=== PATIENT | male | born 1950 | race Caucasian/White ===

== ENCOUNTER 2021-04-10 15:34 | Emergency (ER) | payer OTHER, SELFPAY ==
--- NOTE | ~2021-04-10 | CT_ITS ---
EXAMINATION: CT ANGIOGRAM NECK WITH CONTRAST CT ANGIOGRAM BRAIN WITH CONTRAST CLINICAL INFORMATION: Acute dizziness. COMPARISON: None. TECHNIQUE: Test bolus sequences followed by intravenous administration 70 mL of Omnipaque 350. Helical imaging was performed in the axial plane from the thoracic inlet to the skull vertex. Delayed postcontrast imaging of the head was also performed. The data was processed at the magnetic resonance technologist workstation for generation of MIP sequences. Angled MIPs and volume rendered reformatted images were also generated at an offline 3D workstation. Stenoses are assessed in accordance with NASCET criteria unless otherwise indicated. This CT examination was performed using dose optimization techniques as appropriate, variously including the following: *Automated exposure control *Adjustment of mA and/or kV according to patient size (this includes techniques or standardized protocols for targeted exams where dose is matched to indication/reason for exam; i.e. extremities or head) *Use of iterative reconstruction technique DLP: 2489 mGy-cm FINDINGS: Head CT: There is no intracranial hemorrhage, large acute infarction, or mass lesion. The ventricles are normal in size and configuration without evidence of hydrocephalus. On the delayed postcontrast images, there is no abnormal enhancement. The dural venous sinuses are normally opacified. The visualized paranasal sinuses and mastoid air cells are clear. Neck CTA: The aortic arch is patent. The great vessel origins are patent. The common carotid arteries are patent. Atheromatous changes are seen at both carotid bifurcations and along the proximal internal carotid arteries without hemodynamically significant stenosis. The right vertebral artery is significantly dominant and is patent throughout its cervical course. The left vertebral artery is hypoplastic with diminutive caliber and appears grossly patent. Head CTA: No proximal vessel occlusion is seen. The ACAs and MCAs appear patent with symmetric collaterals. The vertebral arteries and basilar artery are patent. There is -type origin of the right [employer]. The left [employer] appears normal. No aneurysm is seen. Non-vascular findings: The cervical soft tissues are within normal limits. No consolidation is seen within the upper lungs. The cervical soft tissues are within normal limits. Multilevel degenerative changes are seen within the spine. CT/CT angio head neck IMPRESSION: CT head: No intracranial hemorrhage or large acute infarction. CTA neck: No hemodynamically significant stenosis in the major arteries of the neck. CTA head: No large vessel occlusion or significant stenosis within the intracranial circulation.
[2021-04-10 15:42] VITALS: BP 168/90; PULSE 78; RESP 16; O2SAT 97; BMI 34.9
[2021-04-10 16:36] VITALS: BP 141/87; BP 144/81; PULSE 75; PULSE 79
--- NOTE | 2021-04-10 16:36 | ECG_ITS ---
Test Reason : DIZZINESS Blood Pressure : / mmHG Vent. Rate : 074 BPM Atrial Rate : 074 BPM P-R Int : 224 ms QRS Dur : 122 ms QT Int : 418 ms P-R-T Axes : 042 -38 002 degrees QTc Int : 463 ms Sinus rhythm with 1st degree A-V block with occasional Premature ventricular complexes and Fusion complexes Left axis deviation Possible Lateral infarct , age undetermined Abnormal ECG When compared with ECG of 03-SEP-2019 06:39, Fusion complexes are now Present Premature ventricular complexes are now Present [place] interval has increased QRS duration has increased Referred By: Anton Gar Electronically Signed By:ROSALIO PRESTON MD
--- NOTE | 2021-04-10 16:36 | ED_ITS ---
HPI - Syncope General Chief Complaint: Dizziness Stated Complaint: nausea Time Seen by Provider: 04/10/21 16:34 Source: patient Mode of arrival: ambulatory Limitations: no limitations History of Present Illness HPI narrative: Patient is 70 years old with history of hypertension been feeling lightheaded since yesterday am especially on standing denies any spinning movement no chest pain no palpitation. It got worse today morning unable to ambulate because of severe lightheadedness. Patient also noticed slight dark stool. No ringing in the ear no neck pain no headache no change in dizziness with neck movements MD complaint: felt faint Related Data Previous Rx's Medication Instructions Recorded meclizine 25 mg PO TID PRN #20 tab 04/10/21 Allergies Allergy/AdvReac Type Severity Reaction Status Date / Time Penicillins Allergy Unknown UNK Unverified 07/16/20 16:50 Review of Systems Review of Systems: Constitutional : No Weight loss, No Fever, No Chills ENT/Mouth : No sore throat, No Rhinorrhea Eyes: No Eye Pain, No Swelling Cardiovascular : No Chest Pain, no palpitations Respiratory : No Cough, No Sputum, no shortness of breath Gastrointestinal : ++ Nausea, No Vomiting, No Diarrhea, No abdominal Pain, no black stools Genitourinary : No Dysuria, No Urinary Frequency Musculoskeletal : No joint pain, No Myalgias, No Joint Swelling Skin : No Skin Lesions, No rash Neuro : No Weakness, No Numbness, ++Dizziness, No Headache Psych : No Anxiety/Panic, No Depression Heme/Lymph: No Bruising, No Lymphadenopathy Endocrine : No Polyuria, No Polydipsia All other systems reviewed and are negative [facility] Past Medical History Medical History (Updated 04/10/21 @ 20:06 by Anton Gar MD) High cholesterol HTN (hypertension) Right-sided Landers's palsy Social History Social History Patient Tobacco Use Status: Never used Tobacco Use of substances other than those prescribed or required for medical reasons: No Advance Directives: No Advance Directives Information Provided: No Physical Exam Vital Signs: Vital Signs: Last Vital Signs Pulse 83 04/10/21 18:36 Resp 18 04/10/21 18:36 BP 160/91 H 04/10/21 18:36 Pulse Ox 97 04/10/21 18:36 Body Mass Index 34.9 Appearance: Alert. Oriented X3. No acute distress. Eyes: PERRLA, No Nystagmus ENT: Pharynx normal. Oral Mucosa moist Neck: Normal inspection. Neck supple. CVS: Normal heart rate and rhythm. Pulses normal. Respiratory: No respiratory distress. Equal air entry bilateral, no wheezing/rales/rhonchi Abdomen: Soft and nontender. Bowel sounds are present, no mass palpable, no CVA tenderness Skin: Skin warm and dry. Normal skin color. Normal skin turgor. Extremities: No lower extremity edema. No calf tenderness Neuro: Oriented X 3. No motor deficit. No sensory deficit.No cerebellar signs , right Landers's palsy++ MDM - Syncope MDM Narrative Medical decision making narrative: Patient with nonspecific dizziness orthostatic blood pressure was normal urine showed ketones CTA head and neck was negative for any acute [place] posterior circulation ischemia patient felt better after IV fluids and meclizine will discharge patient home on meclizine Medical Records Attestation: I reviewed the patient's medical records. Lab Data Attestation: I reviewed the patient's lab results. Result diagrams: 04/10/21 16:48 04/10/21 16:48 Labs: Lab Results 04/10/21 04/10/21 04/10/21 Range/Units 16:48 16:48 16:48 WBC 7.3 (4.8-10.8) X10*3/uL RBC 4.62 (4.60-5.80) X10*6/uL Hgb 14.2 (14.0-18.0) g/dl Hct 44.1 (42-52) % MCV 95.5 (80-98) fL MCH 30.7 (27.0-33.0) pg MCHC 32.2 (31.0-36.0) g/dl RDW 13.8 (11.0-16.0) % Plt Count 137 L (160-400) X10*3/uL MPV 11.6 (9.4-12.4) fL Immature Gran % (Auto) 0.3 (0.0-0.4) % Neut % (Auto) 77.4 H (45-73) % Lymph % (Auto) 14.7 L (20-40) % [place] % (Auto) 7.2 (2-11) % Eos % (Auto) 0.1 (0-4) % Baso % (Auto) 0.3 (0-2) % Lymph # (Auto) 1.1 L (1.2-4.9) X10*3/uL [place] # (Auto) 0.5 (0.1-1.2) X10*3/uL Eos # (Auto) 0.0 (0.0-0.4) X10*3/uL Baso # (Auto) 0.0 (0.0-0.2) X10*3/uL Abs Immat Gran (auto) 0.02 (0.00-0.03) X10*3/uL Absolute Neuts (auto) 5.7 (2.0-8.3) X10*3/uL Absolute Nucleated RBC 0.000 (0.0-0.012) X10*3/uL Nucleated RBC % (auto) 0.0 (0.0-0.2) /100WBC Smear Tech's Comments Not Reportable PT 12.7 (10.8-13.0) SEC INR 1.1 (0.9-1.1) Sodium 142 (135-145) mmol/L Potassium 3.5 (3.3-5.1) mmol/L Chloride 103 (96-108) mmol/L Carbon Dioxide 26 (22-29) mmol/L Anion Gap 17 (12-20) BUN 15 (9-16) mg/dL Creatinine 0.79 (0.5-1.4) mg/dL Estim Creat Clear Calc 109.8 Estimated GFR > 60 Random Glucose 124 H (60-115) mg/dL Calcium 9.6 (8.4-10.2) mg/dL Total Bilirubin 0.6 (0.0-1.0) mg/dL Direct Bilirubin 0.3 (0.0-0.5) mg/dL AST 21 (5-37) U/L ALT 25 (0-40) U/L Alkaline Phosphatase 118 H (39-117) U/L Troponin I High Sens (<3.5-35.0) ng/L Total Protein 7.6 (6.5-8.0) g/dL Albumin 4.6 (3.5-5.0) g/dL Urine Color Urine Appearance Urine pH (5.0-8.0) Ur Specific [place] (1.005-1.025) Urine Protein (NEG-TRACE) MG/DL Urine Glucose (UA) (NEG) MG/DL Urine Ketones (NEG) MG/DL Urine Blood (NEG) Urine Nitrite (NEG) Ur Leukocyte Esterase (NEG) 04/10/21 04/10/21 Range/Units 16:48 18:38 WBC (4.8-10.8) X10*3/uL RBC (4.60-5.80) X10*6/uL Hgb (14.0-18.0) g/dl Hct (42-52) % MCV (80-98) fL MCH (27.0-33.0) pg MCHC (31.0-36.0) g/dl RDW (11.0-16.0) % Plt Count (160-400) X10*3/uL MPV (9.4-12.4) fL Immature Gran % (Auto) (0.0-0.4) % Neut % (Auto) (45-73) % Lymph % (Auto) (20-40) % [place] % (Auto) (2-11) % Eos % (Auto) (0-4) % Baso % (Auto) (0-2) % Lymph # (Auto) (1.2-4.9) X10*3/uL [place] # (Auto) (0.1-1.2) X10*3/uL Eos # (Auto) (0.0-0.4) X10*3/uL Baso # (Auto) (0.0-0.2) X10*3/uL Abs Immat Gran (auto) (0.00-0.03) X10*3/uL Absolute Neuts (auto) (2.0-8.3) X10*3/uL Absolute Nucleated RBC (0.0-0.012) X10*3/uL Nucleated RBC % (auto) (0.0-0.2) /100WBC Smear Tech's Comments PT (10.8-13.0) SEC INR (0.9-1.1) Sodium (135-145) mmol/L Potassium (3.3-5.1) mmol/L Chloride (96-108) mmol/L Carbon Dioxide (22-29) mmol/L Anion Gap (12-20) BUN (9-16) mg/dL Creatinine (0.5-1.4) mg/dL Estim Creat Clear Calc Estimated GFR Random Glucose (60-115) mg/dL Calcium (8.4-10.2) mg/dL Total Bilirubin (0.0-1.0) mg/dL Direct Bilirubin (0.0-0.5) mg/dL AST (5-37) U/L ALT (0-40) U/L Alkaline Phosphatase (39-117) U/L Troponin I High Sens 3.6 (<3.5-35.0) ng/L Total Protein (6.5-8.0) g/dL Albumin (3.5-5.0) g/dL Urine Color YELLOW Urine Appearance CLEAR Urine pH 7.5 (5.0-8.0) Ur Specific [place] 1.015 (1.005-1.025) Urine Protein NEG (NEG-TRACE) MG/DL Urine Glucose (UA) NEG (NEG) MG/DL Urine Ketones 15 (NEG) MG/DL Urine Blood NEG (NEG) Urine Nitrite NEG (NEG) Ur Leukocyte Esterase NEG (NEG) ECG Data Attestation: I personally reviewed and interpreted this ECG as follows: Interpretation: Normal sinus rhythm with first-degree AV block left axis deviation no acute ST wave changes no acute ischemia occasional unifocal PVCs Discharge Plan Discharge Clinical Impression: Dizziness Patient Disposition: Home, Self-Care Instructions: Dizziness (ED) Additional Instructions: Drink plenty of fluids Take medication for dizziness as prescribed as needed for dizziness follow up with pcp if not better Prescriptions: New meclizine 25 mg tablet 25 mg PO TID PRN (Reason: dizziness) Qty: 20 RF: 0 Interventions: ED Discharge Assessment Last Done: 04/10/21 20:10 Discharge Date/Time: 04/10/21 20:11
[2021-04-10 16:54] LABS: Eosinophils Percent Auto 0.1 % (0-4); Hemoglobin 14.2 g/dl (14.0-18.0); Imm Gran Abs Auto 0.02 X10*3/uL (0.00-0.03); Imm Gran Pct Auto 0.3 % (0.0-0.4); MANUAL DIFF FLAG SCAN; PLT CLUMP 1; SCAN SMEAR FLAG 1
[2021-04-10 16:56] LABS: Basophils Percent Auto 0.3 % (0-2); Hematocrit 44.1 % (42-52); Lymphocytes Absolute Auto 1.1 X10*3/uL (1.2-4.9); Lymphocytes Percent Auto 14.7 % (20-40); Mean Corpuscular HGB Conc 32.2 g/dl (31.0-36.0); Mean Corpuscular Hemoglobin 30.7 pg (27.0-33.0); Mean Corpuscular Volume 95.5 fL (80-98); Mean Platelet Volume 11.6 fL (9.4-12.4); Monocytes Absolute Auto 0.5 X10*3/uL (0.1-1.2); Monocytes Percent Auto 7.2 % (2-11); Neutrophils Absolute Auto 5.7 X10*3/uL (2.0-8.3); Neutrophils Percent Auto 77.4 % (45-73); Platelet Count 137 X10*3/uL (160-400); Red Blood Count 4.62 X10*6/uL (4.60-5.80); Red Cell Distribution Width 13.8 % (11.0-16.0); White Blood Count 7.3 X10*3/uL (4.8-10.8)
[2021-04-10 17:00] LABS: INTERNATIONAL NORM RATIO 1.1 (0.9-1.1); Prothrombin Time 12.7 SEC (10.8-13.0)
[2021-04-10 17:22] LABS: Alanine Aminotransferase 25 U/L (0-40); Albumin Level 4.6 g/dL (3.5-5.0); Alkaline Phosphatase 118 U/L (39-117); Anion Gap 17 (12-20); Aspartate Amino Transferase 21 U/L (5-37); Bilirubin Direct 0.3 mg/dL (0.0-0.5); Bilirubin Total 0.6 mg/dL (0.0-1.0); Blood Urea Nitrogen 15 mg/dL (9-16); Calcium 9.6 mg/dL (8.4-10.2); Carbon Dioxide 26 mmol/L (22-29); Chloride 103 mmol/L (96-108); Creatinine Clr Calc Pharmacy 109.8; Estimated Glomerular Filt Rate > 60; Glucose Random 124 mg/dL (60-115); Potassium 3.5 mmol/L (3.3-5.1); Sodium 142 mmol/L (135-145); Total Protein 7.6 g/dL (6.5-8.0)
[2021-04-10 17:25] LABS: Troponin-I High Sensitivity 3.6 ng/L (<3.5-35.0)
[2021-04-10] MEDS: iohexoL 350 MG/ML 100 ML INFUS..BTL IV (18:28)
[2021-04-10 18:36] VITALS: BP 160/91; PULSE 83; RESP 18; O2SAT 97
[2021-04-10 18:45] LABS: Glucose Urine UA NEG (NEG); Leukocyte Esterase Urine NEG (NEG); Nitrite Urine NEG (NEG); PH 7.5 (5.0-8.0); Specific Gravity - Urine 1.015 (1.005-1.025); Urine Blood NEG (NEG); Urine Ketones 15 MG/DL (NEG); Urine Protein NEG (NEG-TRACE)
[2021-04-10 18:46] LABS: Color Urine YELLOW
[2021-04-10 18:47] LABS: Appearance Urine CLEAR
[2021-04-10] MEDS: Meclizine HCl 25 MG TABLET 50 MG PO (18:47)
[2021-04-10] MEDS: 0.9 % Sodium Chloride 1,000 ML 999 ML IVCONT (18:47)
== END 2021-04-10 20:11 | disposition home or self-care (01) ==
PROVIDERS: Emergency Provider Internal Medicine; PCP Internal Medicine
DX: R42 Dizziness and giddiness (principal); I10 Essential (primary) hypertension
CPT/HCPCS: 36415; 70496; 70498; 80048; 80076; 81003; 84484; 85025; 85610; 93005; 96360; 99284; 99285; Q9967

== ENCOUNTER 2024-07-10 07:12 | Emergency (ER) | payer MEDICARE, SELFPAY ==
--- NOTE | ~2024-07-10 | XR_ITS ---
EXAMINATION: XR CHEST CLINICAL INFORMATION: Chest pain on inspiration COMPARISON: Chest x-ray on 09/03/2019 TECHNIQUE: Frontal view of the chest was obtained. FINDINGS: HEART & VASCULARITY: There are normal cardiac size and pulmonary vascularity. LUNGS: Lungs are markedly hypoinflated. Subtle left lung base alveolar density effacing the left lateral costophrenic angle is seen. No pneumothorax is seen. Air-filled hepatic flexure is seen protruding into the right lung base. BONES: Bony skeleton is intact. XR/XR chest 1V IMPRESSION: 1. Persistent Markedly hypoinflated lungs. 2. Interval development of Subtle left lung base alveolar density effacing the left lateral costophrenic angle compatible with atelectasis or small left pleural effusion. 3. Air-filled hepatic flexure protrudes into the right lung base. Electronically signed by: Lauren Queen MD 07/10/2024 07:56 AM EDT
--- NOTE | ~2024-07-10 | CT_ITS ---
EXAMINATION: CTA OF THE CHEST, ABDOMEN, AND PELVIS WITH AND WITHOUT CONTRAST CLINICAL INFORMATION: Chest pain abdominal pain COMPARISON: Chest radiograph 07/10/2024 TECHNIQUE: Initial noncontrast localizing media librarian images were obtained. Timing boluses at the level of the aortic arch and iliac arteries were calculated. Subsequently, arterial phase multidetector volumetric imaging was performed through the chest, abdomen, and pelvis following the administration of 70 mL Omnipaque 350 intravenous contrast. No contrast reaction reported Sagittal and coronal reformatted images were obtained on the technologist workstation. After extensive post-processing on a dedicated 3-D workstation, 3-D reformatted images were uploaded to PACS and reviewed as well. This CT examination was performed using dose optimization techniques as appropriate, variously including the following: *Automated exposure control *Adjustment of mA and/or kV according to patient size (this includes techniques or standardized protocols for targeted exams where dose is matched to indication/reason for exam; i.e. extremities or head) *Use of iterative reconstruction technique Total exam dose-length product 183 mGy-cm FINDINGS: VASCULAR: 1. Ascending thoracic aorta: There is fusiform dilation of the ascending thoracic aorta measures 4.3 cm at the midportion and 3.9 cm just proximal to the origin of the arch vessels. There is no evidence of dissection or other acute aortic syndrome. 2. Thoracic aortic arch: There is a three-vessel branching orientation of the aortic arch. The origins of the arch vessels are unremarkable in the visualized segments are normal in caliber and well-opacified. 3. Descending thoracic aorta: The descending thoracic aorta is nonaneurysmal. There is no evidence of dissection or other acute aortic syndrome. 4. Mesenteric arteries: Celiac axis and superior mesenteric arteries are widely patent and well-opacified. The inferior mesenteric artery is widely patent and well opacified. 5. Renal arteries: Single renal artery to each kidney. The renal arteries are widely patent and well-opacified. 6. Abdominal aorta: The abdominal aorta is nonaneurysmal. There is no evidence of dissection or other acute aortic syndrome. There is minimal scattered eccentric plaque without stenosis. The iliac bifurcation is unremarkable. 7. Iliac arteries: Iliac bifurcation is widely patent. There is scattered calcified and noncalcified disease of the iliac vessels without hemodynamically significant stenosis. The proximal femoral vessels are patent. 8. Pulmonary arteries: The pulmonary arteries are not dilated. The study is not optimized for the evaluation of the pulmonary arteries, no large central embolus is seen. 9. Venous: Unremarkable appearance of the venous structures for an arterial phase of contrast. NONVASCULAR: Lung: There is elevation of the left hemidiaphragm and volume loss at the left lung base. There is a small focus of linear atelectasis within the lingula. There is a trace subpulmonic effusion. Pleura: Trace left subpulmonic effusion. Mediastinum: Normal heart size. There is relatively extensive vascular calcification of the coronary arteries. No pericardial effusion. No hilar or mediastinal lymphadenopathy. Chest Wall/Axilla: No axillary or internal mammary lymphadenopathy. Liver, Gallbladder and Biliary Tree: Liver is normal in size and overall attenuation. There are multiple hypoattenuating lesions throughout the liver which measure fluid attenuation and likely represent cysts. No concerning hepatic lesions are seen. There is no intra or extrahepatic duct dilation. Gallbladder is unremarkable. Pancreas: Normal; no mass or surrounding fluid. Spleen: Normal size. No focal lesion. Adrenal Glands: Normal; no mass. Kidneys and Ureters: The kidneys are normal in size and shape. There is subtle hypoattenuation of the left kidney when compared with the right.. At the upper pole of the left kidney there is a 10 x 7 x 8 mm nonobstructing calculus. There is no hydronephrosis or hydroureter. There is streak artifact in the pelvis relating to surgical clips which could limit evaluation for distal ureteral calculi. There is renal cortical scarring at the lower pole of the left kidney and there is an exophytic simple cyst which would not require routine radiographic follow-up originating from the lower pole of the right kidney that measures up to 7.5 cm. Gastrointestinal Tract: The esophagus and stomach are unremarkable. The small and large bowel are normal in course and caliber. No bowel wall inflammatory changes are seen. Incidentally the cecum is located in the right upper quadrant. There is mild colonic diverticulosis. Normal appendix. Abdominal Wall: No significant hernia is appreciated. Lymphovascular Structures: No lymphadenopathy. Bladder: Essentially completely decompressed limiting its evaluation. No bladder calculi are seen. Pelvic Viscera: Postprostatectomy. Osseous Structures: There are bilateral L5 pars defects and grade 1 anterolisthesis of L5 on S1. There is disc degenerative change which is most prominent at L5-S1, the distal degenerative change and endplate degenerative changes of the thoracolumbar seen at additional levels. No acute or aggressive bony abnormalities are seen. CT/CT angio chest PE protocol IMPRESSION: Patent thoracic, abdominal, pelvic arterial vasculature without evidence of dissection or other acute aortic syndrome. There is aneurysmal dilation of the ascending thoracic aorta to 4.3 cm. There is diffuse hypoenhancement of the left kidney when compared with the right which is a nonspecific finding. Correlation with urinalysis could be helpful. Additionally there is a left upper pole nonobstructing calculus that measures up to 10 mm in greatest dimension. Electronically signed by: Ric Hloguin MD 07/10/2024 12:28 PM EDT
[2024-07-10 07:21] VITALS: BP 147/85; PULSE 70; RESP 16; TEMP 36.8; O2SAT 96; BMI 38.3
--- NOTE | 2024-07-10 07:30 | ECG_ITS ---
Test Reason : CHEST PAIN Blood Pressure : / mmHG Vent. Rate : 068 BPM Atrial Rate : 068 BPM P-R Int : 230 ms QRS Dur : 108 ms QT Int : 400 ms P-R-T Axes : 037 -48 000 degrees QTc Int : 425 ms Sinus rhythm with 1st degree A-V block Left anterior fascicular block Abnormal ECG When compared with ECG of 10-APR-2021 16:21, Fusion complexes are no longer Present Premature ventricular complexes are no longer Present Referred By: Generic ED Physician Electronically Signed By:MELANIE MUSE
[2024-07-10 07:48] LABS: MANUAL DIFF FLAG NO
[2024-07-10 07:52] LABS: Basophils Percent Auto 0.3 % (0-2); Eosinophils Absolute Auto 0.1 X10*3/uL (0.0-0.4); Eosinophils Percent Auto 1.4 % (0-4); Hematocrit 41.9 % (42.0-52.0); Hemoglobin 13.7 g/dl (14.0-18.0); Imm Gran Abs Auto 0.01 X10*3/uL (0.00-0.03); Imm Gran Pct Auto 0.2 % (0.0-0.4); Lymphocytes Absolute Auto 1.2 X10*3/uL (1.2-4.9); Lymphocytes Percent Auto 19.8 % (20-40); Mean Corpuscular HGB Conc 32.7 g/dl (31.0-36.0); Mean Corpuscular Hemoglobin 31.9 pg (27.0-33.0); Mean Corpuscular Volume 97.7 fL (80.0-98.0); Mean Platelet Volume 11.2 fL (9.4-12.4); Monocytes Absolute Auto 0.9 X10*3/uL (0.1-1.2); Monocytes Percent Auto 14.9 % (2-11); Neutrophils Absolute Auto 3.8 x10*3/uL (2.0-8.3); Neutrophils Percent Auto 63.4 % (45-73); Platelet Count 135 X10*3/uL (160-400); Red Blood Count 4.29 X10*6/uL (4.60-5.80); Red Cell Distribution Width 13.8 % (11.0-16.0); White Blood Count 5.9 X10*3/uL (4.8-10.8)
[2024-07-10 08:00] LABS: Anion Gap 14 (12-20); Blood Urea Nitrogen 17 mg/dL (9-16); Calcium 9.6 mg/dL (8.4-10.2); Carbon Dioxide 28 mmol/L (22-29); Chloride 105 mmol/L (96-108); Creatinine Clr Calc Pharmacy 91.2; Estimated Glomerular Filt Rate > 60; Glucose Random 130 mg/dL (60-115); Potassium 3.7 mmol/L (3.3-5.1); Sodium 143 mmol/L (135-145)
[2024-07-10 08:08] LABS: Troponin-I High Sensitivity 4.3 ng/L (<3.5-35.0)
[2024-07-10 09:17] VITALS: BP 148/91; PULSE 70; RESP 16; O2SAT 96
--- NOTE | 2024-07-10 09:25 | PC.NURSE ---
Pt reports left sided cp, worse with inspiration since monday after he moved some things around the house. Pt saw his PCP who did an EKG and believes it is a muscle strain. Pt came to ed for eval as the pain wasn't getting better and he was concerned. VS updated, pt placed on tele. MD at bedside to evaluate at this time.
--- NOTE | 2024-07-10 09:28 | ED_ITS ---
HPI - Chest Pain General Chief Complaint: Chest Pain Stated Complaint: SOB Time Seen by Provider: 07/10/24 09:13 History of Present Illness HPI narrative: Patient is a 74-year-old male was gardening on Monday and Monday. Complaining of left-sided chest pain worse with deep inspiration. Wants to see his primary in EKG was done. Patient was set up for a stress test on an outpatient basis. Continued to have the pain. Not on any blood thinners. No history diabetes, hypertension, high cholesterol, smoking, mi. patient is from home. No fever no chills no diaphoresis. Related Data Previous Rx's ?Medication ?Instructions ?Recorded meclizine 25 mg tablet 25 mg PO TID PRN dizziness #20 tabs 04/10/21 Allergies Allergy/AdvReac Type Severity Reaction Status Date / Time Penicillins Allergy Unknown UNK Unverified 07/10/24 07:27 Review of Systems 2 Review of Systems: No fever no chills no diaphoresis positive chest pain on the left side worse with deep inspiration Yes all other systems are reviewed and are negative [facility] Past Medical History Attestation statement: The following information was validated with the patient. Medical History Right-sided Landers's palsy High cholesterol HTN (hypertension) Social History Social History Patient Tobacco Use Status: Never used Tobacco Advance Directives: No Advance Directives Information Provided: Yes Do you have a plan to hurt others: No Plan Physical Exam 2 Vital Signs: Vital Signs: Last Vital Signs Temp 98.3 F 07/10/24 07:21 Pulse 66 07/10/24 11:52 Resp 15 07/10/24 11:52 BP 152/77 H 07/10/24 11:52 Pulse Ox 96 07/10/24 11:52 O2 Del Method Room Air 07/10/24 11:52 BMI result Body Mass Index 38.3 Appearance: Alert. Oriented X3. No acute distress. Eyes: Pupils equal, round and reactive to light. ENT: Pharynx normal. Neck: Normal inspection. Neck supple. No lymph nodes noted. No crepitus CVS: Normal heart rate and rhythm. Pulses normal. Normal S1 and S2 Respiratory: No respiratory distress. Breath sounds normal. No Wheezing. No rales Abdomen: Soft and nontender. No rigidity. No distention. good BS x4 Skin: Skin warm and dry. Normal skin color. Normal skin turgor. Extremities: No lower extremity edema. Neurovascular intact to all extremities. No Lacerations. No Rash Neuro: Oriented X 3. No motor deficit. No sensory deficit. Moving all extermities. No slurred speech Medications Administered Discontinued Medications Generic Name Dose Route Start Last Admin Trade Name Shahid PRN Reason Stop Dose Admin Iohexol 70 ml 07/10/24 10:00 07/10/24 10:01 Iohexol 350 Mg/Ml 100 Ml Infus..Btl IV 07/10/24 10:01 70 ml ONCE ONE Administration Medical Decision Making Medical Decision Making [facility] Narrative: Patient is 74 years old presents today with having left-sided chest pain. The pain is sometimes worse with movement. Nonspecific. Over the entire left side both in the chest any abdomen. Patient not on any blood thinners. Has no significant risk for pulmonary emboli. No history of cancer. History of hypertension. No history of diabetes, high cholesterol, smoking, mi. patient's labs showed 2 sets of negative cardiac enzymes. History that is atypical for ACS. My interpretation patient's EKG showed a sinus pattern heart rate is 70 [place] QRS QTC normal there is no acute ST segment elevation noted. Patient received a CT a chest abdomen pelvis. There is no large PE that was noted. Patient's has no dissecting aneurysm. Does have a slight enlargement of his aortic take off. It was noted to be 4.3 cm in size. Given the upper range of normal is 4 cm. This finding was relayed to vascular on-call Dr. Teran. Agree to closely follow up on an outpatient basis. In no acute distress. Neurovascularly intact. Patient's heart score is less than 3 in the setting of atypical history minimal risk factor negative troponin x2 sets. Patient has an outpatient stress test scheduled with his primary physician. Has no acute abdominal pathology that was noted. Will discharge patient home. Close follow-up advised. Differential Diagnosis Differential Diagnoses: The differential diagnosis associated with the presentation includes ACS, PE, dissection Admission/Observation Consideration of admission/observation: Escalation of care including admission/observation considered Consult Healthcare Provider Management of the patient was discussed with: Metal Window Screen Assembler (Vascular surgery) Lab Data [facility] Lab Attestation statement: I reviewed the patient's lab results. 07/10/24 07:43 07/10/24 07:43 Labs: Lab Results 07/10/24 07/10/24 Range/Units 07:43 11:08 WBC 5.9 (4.8-10.8) X10*3/uL RBC 4.29 L (4.60-5.80) X10*6/uL Hgb 13.7 L (14.0-18.0) g/dl Hct 41.9 L (42.0-52.0) % MCV 97.7 (80.0-98.0) fL MCH 31.9 (27.0-33.0) pg MCHC 32.7 (31.0-36.0) g/dl RDW 13.8 (11.0-16.0) % Plt Count 135 L (160-400) X10*3/uL MPV 11.2 (9.4-12.4) fL Immature Gran % (Auto) 0.2 (0.0-0.4) % Neut % (Auto) 63.4 (45-73) % Lymph % (Auto) 19.8 L (20-40) % [place] % (Auto) 14.9 H (2-11) % Eos % (Auto) 1.4 (0-4) % Baso % (Auto) 0.3 (0-2) % Lymph # (Auto) 1.2 (1.2-4.9) X10*3/uL [place] # (Auto) 0.9 (0.1-1.2) X10*3/uL Eos # (Auto) 0.1 (0.0-0.4) X10*3/uL Baso # (Auto) 0.0 (0.0-0.2) X10*3/uL Abs Immat Gran (auto) 0.01 (0.00-0.03) X10*3/uL Absolute Neuts (auto) 3.8 (2.0-8.3) x10*3/uL Absolute Nucleated RBC 0.000 (0.0-0.012) X10*3/uL Nucleated RBC % (auto) 0.0 (0.0-0.2) /100WBC Sodium 143 (135-145) mmol/L Potassium 3.7 (3.3-5.1) mmol/L Chloride 105 (96-108) mmol/L Carbon Dioxide 28 (22-29) mmol/L Anion Gap 14 (12-20) BUN 17 H (9-16) mg/dL Creatinine 0.94 (0.5-1.4) mg/dL Estim Creat Clear Calc 91.2 Estimated GFR > 60 Random Glucose 130 H (60-115) mg/dL Calcium 9.6 (8.4-10.2) mg/dL Total Bilirubin 0.5 (0.0-1.0) mg/dL Direct Bilirubin 0.2 (0.0-0.5) mg/dL AST 22 (5-37) U/L ALT 25 (0-40) U/L Alkaline Phosphatase 125 H (39-117) U/L Troponin I High Sens 4.3 4.2 (<3.5-35.0) ng/L Total Protein 7.8 (6.5-8.0) g/dL Albumin 4.2 (3.5-5.0) g/dL Lipase 17 (8-78) U/L Independent Interpretation I performed an independent interpretation of an: EKG (Heart rate is 70 [place] QRS QTC normal no acute ST segment elevation) and CT Scan (CTA of the chest abdomen pelvis showed no gross dissection. No large PE) Radiology Impression Discussion of test interpretation with radiology: I have reviewed the radiologist's reading. Chronic Conditions Patient?s care impacted by: Hypertension Discharge Plan Discharge Clinical Impression: Chest pain Patient Disposition: Home, Self-Care Instructions: Chest Pain (ED) Prescriptions: No Action meclizine 25 mg tablet 25 mg PO TID PRN (Reason: dizziness) Qty: 20 0RF Referrals: Clarke Cohen MD [Primary Care Provider] - 07/12/24 Lincoln Teran MD [Physician] - 07/17/24 Print Language: Chinese
[2024-07-10 09:52] LABS: Alanine Aminotransferase 25 U/L (0-40); Albumin Level 4.2 g/dL (3.5-5.0); Alkaline Phosphatase 125 U/L (39-117); Aspartate Amino Transferase 22 U/L (5-37); Bilirubin Direct 0.2 mg/dL (0.0-0.5); Bilirubin Total 0.5 mg/dL (0.0-1.0); Lipase 17 U/L (8-78); Total Protein 7.8 g/dL (6.5-8.0)
--- NOTE | 2024-07-10 09:52 | PC.NURSE ---
Pt to CT Scan.
[2024-07-10] MEDS: iohexoL 350 MG/ML 100 ML INFUS..BTL 70 ML IV (10:01)
[2024-07-10 11:31] LABS: Troponin-I High Sensitivity 4.2 ng/L (<3.5-35.0)
--- NOTE | 2024-07-10 11:51 | PC.NURSE ---
VS updated, pt denies any complaints. Awaiting CTA results.
[2024-07-10 11:52] VITALS: BP 152/77; PULSE 66; RESP 15; O2SAT 96
[2024-07-10 13:18] VITALS: BP 167/93; PULSE 75; RESP 21; O2SAT 94
[2024-07-10 13:25] VITALS: BP 167/93; PULSE 75; RESP 21; TEMP 36.8; O2SAT 94
== END 2024-07-10 13:26 | disposition home or self-care (01) ==
PROVIDERS: Emergency Provider Emergency Medicine Emergency Medical Services; PCP Internal Medicine
DX: R07.9 Chest pain, unspecified (principal); R10.9 Unspecified abdominal pain; I10 Essential (primary) hypertension
CPT/HCPCS: 36415; 71045; 71275; 74174; 80048; 80076; 83690; 84484; 85025; 93005; 99284; Q9967

== ENCOUNTER 2024-11-29 08:27 | Outpatient (REF) | payer MEDICARE, SELFPAY ==
--- NOTE | ~2024-11-29 | CT_ITS ---
CLINICAL HISTORY: ANEURYSM OF ASCENDING AORTA CT chest without contrast Comparison: CT/SR - CT ANGIO CHEST PE PROTOCOL - 07/10/24 09:49 EDT Findings: Limited vascular evaluation given absence of contrast. The maximum transverse dimension of the ascending thoracic aorta is 4.6 x 4.6 cm. Moderately severe atherosclerotic disease of the coronary arteries. No mediastinal adenopathy or pericardial effusion. Mildly heterogeneous thyroid gland, nonspecific. Elevation of the left hemidiaphragm. Associated compressive atelectasis. No suspicious lung lesion. No effusion. No pneumothorax. Several rounded hepatic lesions are present, those large enough to measure are consistent with simple fluid/benign lesions. No acute osseous abnormality. Impression: The maximum transverse dimension of the ascending thoracic aorta is 4.6 x 4.6 cm. Evaluation is somewhat limited in the absence of contrast. Additional incidental findings. This document has been electronically signed by: Joel Mosley MD on 11/29/2024 09:41:21
--- OUTSIDE RECORDS SUMMARY | 2024-11-29 08:35 | XMS_ITS | Encounter Summary ---
Author Organization [facility] Address [address] [place] [address] Care Team Providers Care Electric Motor Analyst Name Role Phone Unavailable Primary Care Provider Unavailabl e Encounter Details Date Type Department Care Team (Late st Contact Info) Description 11/20/[address] [facility] Lab [address] [facility] [place] [address] Brett Franco MD [address] [facility] [address] [place] [address] Gross hematuria Social History Tobacco Use Types Packs/Day Years Used Date Smoking Tobacco: Never Assessed Sex and Gender Information Value Date Recorded Sex Assigned at Not on file Gender Identity Not on file Sexual Orientation Not on file documented as of this encounter Plan of Treatment Pending Results Name Type Priority Associated Diagnoses Date /Time Anatomic pathology outside consult Pathology and Cytology Routine Gross hematuria 11/13/2024 12:00 AM EST documented as of this encounter Visit Diagnoses Diagnosis Gross hematuria documented in this encounter
--- OUTSIDE RECORDS SUMMARY | 2024-11-29 08:35 | XMS_ITS | Clinical Summary ---
Author Organization [facility] Address [address] [place] [address] Care Team Providers Care Aerospace Engineer Name Role Phone Clarke Vidal MD Primary Care Provider [phone] Allergies Active Allergy Reactions Criticality Noted Date Comments Penicillin G Hives,Rash/Dermatitis Medium 08/15/2024 Per patient Medications Medication Sig Dispensed Refills Start Date End Date Status amLODIPine (NORVASC) 10 MG tablet Take 10 mg by mouth. 06/14/2024 Active atorvastatin (LIPITOR) 20 MG tablet Take 20 mg by mouth nightly. 06/14/2024 Active clobetasol (TEMOVATE) 0.05 % cream Apply topically 2 (two) times a day. 08/06/2024 Active mupirocin (BACTROBAN) 2 % ointment Apply topically 2 (two) times a day. 05/14/2024 Active tadalafil (CIALIS) 20 MG tablet Take 20 mg by mouth as needed. 08/06/2024 Active zolpidem (AMBIEN) 5 MG tablet Take 5 mg by mouth nightly as needed for sleep. Active sodium-potassium- magnesium sulfates (Suprep Bowel Prep Kit) 17.5-3.13-1.6 GM/177ML Solution solutionIndicatio ns:Adenomatous polyp of colon, unspecified part of colon Follow directions provided by physician's office. 354 mL 08/15/2024 11/06/2024 Discontinued Active Problems Problem Noted Date Diagnosed Date Adenomatous polyp of colon 08/15/2024 Encounters Date Type Department Care Team Description 11/06/2024 9:00 AM EST Anesthesia Event [facility] [address] [place] [address] Hill Horowitz MD 11/06/2024 8:45 AM EST - 11/06/2024 9:15 AM EST Surgery [facility] [address] [place] [address] John Cox MD COLONOSCOPY 11/06/2024 7:53 AM EST - 11/06/2024 11:59 PM EST Hospital Encounter [facility] [address] [place] [address] John Cox MD Discharge Disposition: Home or Self Care 11/06/[address] [address] [facility] [address] [facility] [address] [place] [address] John Cox MD 10/21/2024 Travel from Last 3 Months Social History Tobacco Use Types Packs/Day Years Used Date Smoking Tobacco: Never Smokeless Tobacco: Never Tobacco Cessation:Counseling Given: Not Answered Alcohol Use Standard Drinks/Week Comments Yes 3 (1 standard drink = 0.6 oz pure alcohol) Patient reported consumming wine on weekends. Sex and Gender Information Value Date Recorded Sex Assigned at Male 07/16/2024 3:09 PM EDT Gender Identity Male 07/16/2024 3:09 PM EDT Sexual Orientation Heterosexual (straight) 07/16 3:09 PM EDT Last Filed Vital Signs Vital Sign Reading Time Taken Comments Blood Pressure 126/92 11/06/2024 9:50 AM EST Pulse 68 11/06/2024 9:50 AM EST Temperature 36.7 ??C (98 ??F) 11/06/2024 9:32 AM EST Respiratory Rate 16 11/06/2024 9:50 AM EST Oxygen Saturation 97% 11/06/2024 9:50 AM EST Inhaled Oxygen Concentration - - Weight 118 kg (260 lb) 11/06/2024 8:06 AM EST Height 180.3 cm (5' 11 ) 11/06/2024 8:06 AM EST Body Mass Index 36.26 11/06/2024 8:06 AM EST Plan of Treatment Health Maintenance Due Date Last Done Comments Hepatitis C Virus Screening 1950 DTaP/Tdap/Td Vaccines (1 - Tdap) 1968 Pneumococcal Vaccines 50+ (1 of 1 - PCV) 1999 Zoster (Shingles) Vaccine (1 of 2) 1999 Influenza Vaccine 05/30/2024 08/07/2023, , 08/05/2019, Additional history exists RSV Vaccine 60 years and older and Patients (1 - 1-dose 75+ series) 2024 COVID-19 Vaccine (2 - season) 2024 08/23/2021 Colonoscopy 11/06/2034 11/06/2024 Hepatitis B Vaccines Aged Out No long er eligible based on patient's age to complete this topic Procedures Procedure Name Priority Date/Time Associated Diagnosis Comments PATHOLOGY REPORT 11/06/2024 12:0 0 AM EST from Last 3 Months Results * Pathology (11/06/2024 12:00 AM EST) John Cox MD PATHOLOGY/CYTOLOGY O RDERABLES from Last 3 Months Care Teams Aerospace Engineer Relationship Specialty Start Date End Date Clarke Vidal MD [address] [address] PCP - General Internal Medicine 07/16/24
--- OUTSIDE RECORDS SUMMARY | 2024-11-29 08:36 | XMS_ITS | Encounter Summary ---
Author Organization [facility] Address [address] [place] [address] Care Team Providers Care Custom Grinder Name Role Phone Clarke Vidal MD Primary Care Provider [phone] Encounter Details Date Type Department Care Team (Late st Contact Info) Description 11/06/2024 9:00 AM EST Anesthesia Event [facility] PROC [facility] [address] [place] [id number] Hill Horowitz MD [address] [place] [address] Anesthesia Record Procedure Summary Procedure Name Responsible Anesthesiologist Anesthesia Start Time Anesthesia Stop Time COLONOSCOPY (Anus) Events Date Time Event Comment 11/06/2024 0826 1009 Case Charted on Paper Which portion(s) of your chart were completed on paper? {Anesthesia Record Portion:[id number]} Why did you use paper? {Anesthesia Paper Reason:[id number]} Meds * Agents No agents on file. * Blood No blood administrations on file. Lines, Drains, and Airways No LDAs on file. documented in this encounter Social History Tobacco Use Types Packs/Day Years Used Date Smoking Tobacco: Never Smokeless Tobacco: Never Alcohol Use Standard Drinks/Week Comments Yes 3 (1 standard drink = 0.6 oz pure alcohol) Patient reported consumming wine on weekends. Sex and Gender Information Value Date Recorded Sex Assigned at Male 07/16/2024 3:09 PM EDT Gender Identity Male 07/16/2024 3:09 PM EDT Sexual Orientation Heterosexual (straight) 07/16 3:09 PM EDT documented as of this encounter OR Notes * Anesthesia Preprocedure Evaluation - Hill Horowitz MD - 11/06/2024 8:22 AM EST Department of Anesthesiology Pre-Procedure Evaluation Patient Name: John Isbell : 1950 Admission Date: 11/06/2024 Attending Provider: John Cox MD Date of Service: 11/06/2024 Scheduled Procedure: COLONOSCOPY, N/A - Anus Pre-operative Diagnosis: * No pre-op diagnosis entered * Relevant Problems No relevant active problems Allergies Allergen Reactions Penicillin G Hives and Rash/Dermatitis Per patient No data recorded Patient summary reviewed. Nursing notes reviewed. ECG reviewed. Pre-procedure vital signs reviewed. NPO status verified. Respiratory - negative ROS Cardiovascular Positives: hypercholesterolemia hypertension- Negatives: pacemaker Neuromuscular - negative neuro/psych ROS GI/Hepatic/Renal - negative GI/Hepatic/Renal/ ROS Endo/MET - negative ROS Hem/Lymph Skel/Skin Psych HEENT Obstetrics Other Syndromes Physical Exam Airway Mallampati II TM distance >3 FB Neck ROM: full normal rate regular rhythm Pulmonary - pulmonary exam normal Abdominal Past Medical History: Diagnosis Date Hyperlipidemia Hypertension Prostate disease Past Surgical History: Procedure Laterality Date COLONOSCOPY N/A 2018 PROSTATE SURGERY 2004 Family History Family history unknown: Yes Social History Socioeconomic History Marital status: Unknown Spouse name: Not on file Number of children: Not on file Years of education: Not on file Highest education level: Not on file Occupational History Not on file Tobacco Use Smoking status: Never Smokeless tobacco: Never Vaping Use Vaping status: Never Used Substance and Sexual Activity Alcohol use: Yes Alcohol/week: 3.0 - 4.0 standard drinks of alcohol Types: 3 - 4 Glasses of wine per week Comment: Patient reported consumming wine on weekends. Drug use: Yes Sexual activity: Not on file Other Topics Concern Not on file Social History Narrative Not on file Social Determinants of Health Financial Resource Strain: Not on file Food Insecurity: Not on file Transportation Needs: Not on file Physical Activity: Not on file Stress: Not on file Social Connections: Not on file Housing Stability: Not on file Ht Readings from Last 1 Encounters: 11/06/24 1.803 m (5' 11 ) Wt Readings from Last 1 Encounters: 11/06/24 118 kg (260 lb) Body mass index is 36.26 kg/m??. No results found for: WBC , HGB , HCT , PLT , NA , K , CO2 , CL , GLUC , BUN , CREAT , CALCIUM , ABORH , INR , PROTIME , PTT No results found for: ABORH , TYPE , SCREEN No results found for this or any previous visit (from the past 8760 hour(s)). NPO Status: Date of Last Liquid Consumption: 11/06/24 Time of Last Liquid Consumption: 0400 Date of Last Solid Consumption: 11/04/24 Time of Last Solid Consumption: 1730 Anesthesia Plan ASA Score: ASA 2 Consent: The anesthetic plan and associated risks was discussed with patient. Anesthesia Plan: MAC ship pilot dispatcher Note I personally evaluated and examined the patient prior to the intra-operative phase of care. Hill Horowitz MD documented in this encounter Plan of Treatment Not on file documented as of this encounter Visit Diagnoses Not on filedocumented in this encounter Care Teams Custom Grinder Relationship Specialty Start Date End Date Clarke Vidal MD [address] [place] [id number] PCP - General Internal Medicine 07/16/24 documented as of this encounter
--- OUTSIDE RECORDS SUMMARY | 2024-11-29 08:36 | XMS_ITS | Encounter Summary ---
Author Organization [facility] Address [address] [place] [address] Care Team Providers Care Silica Dry Press Helper Name Role Phone Unavailable Primary Care Provider Unavailabl e Encounter Details Date Type Department Care Team (Late st Contact Info) Description 10/09/2024 Lab Requisition [facility] Lab [address] [facility] [place] [address] Mitali Martinez PA [address] [place] [id number] Gross hematuria Social History Tobacco Use Types Packs/Day Years Used Date Smoking Tobacco: Never Assessed Sex and Gender Information Value Date Recorded Sex Assigned at Not on file Gender Identity Not on file Sexual Orientation Not on file documented as of this encounter Plan of Treatment Not on file documented as of this encounter Procedures Procedure Name Priority Date/Time Associated Diagnosis Comments AP OUTSIDE CONSULT Routine 10/01/2024 12 :00 AM EST Gross hematuria documented in this encounter Results * Anatomic pathology outside consult (10/01/2024 12:00 AM EST) Final Diagnosis Urine, Voided: Negative for high grade urothelial carcinoma. Acute inflammation present. Results of Uro[employer] fluorescence in situ hybridization (FISH) testing: Although FISH was performed, insufficient non-obscured hybridization signals are present for evaluation and interpretation. 10/17/2024 3:00 PM EST [facility] Clinical Information [id number] Cytology/Urine FISH (now) 10/17/2024 3:00 PM EST [facility] Gross Description A. Urine, Voided, : [id number] Received 1 TP (CYTO) 1 TP (FISH) 10/17/2024 3:00 PM EST [facility] Disclaimer Unless otherwise specified, all tissue is 10% NB formalin fixed and paraffin embedded. Technical pathology services provided by [facility] at [address] [place] [address] [address], [place] [address] (CLIA #[id number]/Rachel Boyd MD, Mask Design Engineer) 10/17/2024 3:00 PM EST [facility] Tissue Urine specimen from urethra / Unknown 10/01/2024 10/09/2024 1:59 PM EST [facility] [address] [place] [address], documented in this encounter Visit Diagnoses Diagnosis Gross hematuria documented in this encounter
--- OUTSIDE RECORDS SUMMARY | 2024-11-29 08:36 | XMS_ITS | Encounter Summary ---
Author Organization [facility] Address [address] [place] [address] Care Team Providers Care Client Support Coordinator Name Role Phone Clarke Vidal MD Primary Care Provider [phone] Reason for Visit * Auth/Cert (Routine) Specialty Diagnoses / Procedures Referred By Contac t Referred To Contact Diagnoses Adenomatous polyp of colon, unspecified part of colon Procedures COLONOSCOPY Referral ID Status Reason Start Date Expiration Date Visits Re quested Visits Authorized [id number] 1 1 Encounter Details Date Type Department Care Team (Late st Contact Info) Description 11/06/2024 8:45 AM EST - 11/06/2024 9:15 AM EST Surgery [facility] ENDO PROC [facility] [address] [place] [id number] John Cox MD [address] [place] [address] [place] [address] COLONOSCOPY Social History Tobacco Use Types Packs/Day Years [...] PM EDT documented as of this encounter Last Filed Vital Signs Vital Sign Reading Time Taken Comments Blood Pressure 172/83 11/06/2024 8:06 AM EST Pulse 77 11/06/2024 8:06 AM EST Temperature 36.8 ??C (98.2 ??F) 11/06/2024 8:06 AM ES T Respiratory Rate 18 11/06/2024 8:06 AM EST Oxygen Saturation 97% 11/06/2024 8:06 AM EST Inhaled Oxygen Concentration - - Weight 118 kg (260 lb) 11/06/2024 8:06 AM EST Height 180.3 cm (5' 11 ) 11/06/2024 8:06 AM EST Body Mass Index 36.26 11/06/2024 8:06 AM EST documented in this encounter Medications at Time of Discharge Medication Sig Dispensed Refills Start Date End Date amLODIPine (NORVASC) 10 MG tablet Take 10 mg by mouth. 06/14/2024 atorvastatin (LIPITOR) 20 MG tablet Take 20 mg by mouth nightly. 06/14/2024 clobetasol (TEMOVATE) 0.05 % cream Apply topically 2 (two) times a day. 08/06/2024 tadalafil (CIALIS) 20 MG tablet Take 20 mg by mouth as needed. 08/06/2024 mupirocin (BACTROBAN) 2 % ointment Apply topically 2 (two) times a day. 05/14/2024 zolpidem (AMBIEN) 5 MG tablet Take 5 mg by mouth nightly as needed for sleep. documented as of this encounter H&P Notes * John Cox MD - 11/06/2024 7:53 AM EST PREOPERATIVE H&P PROCEDURE:Colonoscopy CHIEF COMPLAINT: History of colon polyp HPI: Patient is a 74 y.o. year old male for history of colon polyp Past Medical History: Diagnosis Date Hyperlipidemia Hypertension Prostate disease Family History Family history unknown: Yes Social [...] on file Housing Stability: Not on file Allergies Allergen Reactions Penicillin G Hives and Rash/Dermatitis Per patient Scheduled Meds: Continuous Infusions: No current facility-administered medications for this encounter. PRN Meds: (Not in a hospital admission) Temp 98.2 ??F (36.8 ??C) (Temporal) Resp 18 Ht 1.803 m (5' 11 ) Wt 118 kg (260 lb) BMI 36.26 kg/m?? Examination Eyes: no icterus ENT: No lymphadenopathy CVS: RRR Abdomen: soft, NT, ND, BS + Extremities: no c/c/e Neuro: AAO X 3, IMPRESSION: History of colon polyp PLAN: colonoscopy ASA per anesthesia Colonoscopy. Benefits and risks explained to patient including but not limited to bleeding, infection , perforation or anesthesia related side effects. documented in this encounter Plan of Treatment Not on file documented as of this encounter Visit Diagnoses Diagnosis Adenomatous polyp of colon, unspecified part of colon documented in this encounter Care Teams Client Support Coordinator Relationship Specialty Start Date End Date Clarke Vidal MD [address] [place] [address] PCP - General Internal Medicine 07/16/24 documented as of this encounter
--- OUTSIDE RECORDS SUMMARY | 2024-11-29 08:37 | XMS_ITS | Clinical Summary ---
Author Organization [facility] Address [address] [place] [address] Phone Care Team Providers Care Mechanical Test Engineer Name Role Phone Unavailable Primary Care Provider Unavailabl e Encounters Date Type Department Care Team Description 11/20/2024 Lab Requisition [facility] [address] [place] [address] Brett Franco MD Gross hematuria 10/09/2024 Lab Requisition [facility] [address] [place] [address] Mitali Martinez PA Gross hematuria from Last 3 Months Social History Tobacco Use Types Packs/Day Years Used Date Smoking Tobacco: Never Assessed Sex and Gender Information Value Date Recorded Sex Assigned at Not on file Gender Identity Not on file Sexual Orientation Not on file Plan of Treatment Health Maintenance Due Date Last Done Comments DTaP,Tdap,and Td Vaccines (1 - Tdap) 1968 Zoster Vaccines (1 of 2) 1999 Pneumococcal Vaccine: 65+ Ye ars (1 of 1 - PCV) 2014 RSV Immunization Patients 60 + Years Old (1 - 1-dose 75+ series) 2024 COVID-19 Vaccine ( - 2023-2 5 season) 2024 Influenza Vaccine (#1) 2024 Abdominal Aortic Aneurysm (A AA) Screen 10/09/2024 Cholesterol Screening (Lipid Panel) 10/09/2024 Colorectal Cancer Screening: Colonoscopy 10/09/2024 Depression Screening 10/09/2024 Falls Risk Assessment 10/09/2024 Hepatitis C Screening 10/09/2024 Medicare Annual Wellness Visit 10/09/2024 Social Influencers of Health Screening 10/09/2024 HIB Vaccines Aged Out No longer eligi ble based on patient's age to complete this topic HPV Vaccines Aged Out No longer eligi ble based on patient's age to complete this topic Hepatitis A Vaccines Aged Out No long er eligible based on patient's age to complete this topic Hepatitis B Vaccines Aged Out No long er eligible based on patient's age to complete this topic IPV Vaccines Aged Out No longer eligi ble based on patient's age to complete this topic MMR Vaccines Aged Out No longer eligi ble based on patient's age to complete this topic Meningococcal ACWY Vaccine Aged Out N o longer eligible based on patient's age to complete this topic RSV Immunization Patients Un fiona 20 months Aged Out No longer eligible b ased on patient's age to complete this topic Varicella Vaccines Aged Out No longer eligible based on patient's age to complete this topic Procedures Procedure Name Priority Date/Time Associated Diagnosis Comments AP OUTSIDE CONSULT Routine 10/01/2024 12 :00 AM EST Gross hematuria from Last 3 Months Results * Anatomic pathology outside consult (10/01/2024 12:00 AM EST) Final Diagnosis Urine, Voided: Negative for high grade urothelial carcinoma. Acute inflammation present. Results of [employer] fluorescence in situ hybridization (FISH) testing: Although FISH was performed, insufficient non-obscured hybridization signals are present for evaluation and interpretation. 10/17/2024 3:00 PM [facility] Clinical Information [id number] Cytology/Urine FISH (now) 10/17/2024 3:00 PM [facility] Gross Description A. Urine, Voided, : [id number] Received 1 TP (CYTO) 1 TP (FISH) 10/17/2024 3:00 PM [facility] Disclaimer Unless otherwise specified, all tissue is 10% NB formalin fixed and paraffin embedded. Technical pathology services provided by [facility] at [address] [place] [address] [address], [place] [address] (CLIA #[id number]/Rachel Boyd MD, Voucher Examiner) 10/17/2024 3:00 PM EST [facility] Tissue Urine specimen from urethra / Unknown 10/01/2024 10/09/2024 1:59 PM EST [facility] PATH[facility]Y [facility] ([facility]) [facility] [address] [place] [address], from Last 3 Months
--- OUTSIDE RECORDS SUMMARY | 2024-11-29 08:37 | XMS_ITS | Encounter Summary ---
Author Organization [facility] Address [address] [place] [address] Care Team Providers Care Pig Conveyor Operator Name Role Phone Clarke Vidal MD Primary Care Provider [phone] Encounter Details Date Type Department Care Team (Late st Contact Info) Description 11/06/[address] [facility] [address] [facility] [address] [place] [address] John Cox MD [address] [facility] [address] [place] [address] Social History Tobacco Use Types Packs/Day Years [...] PM EDT documented as of this encounter Progress Notes * Bettie Diaz MA - 11/06/2024 9:34 AM EST Seen by patient John Isbell on 11/12/2024 10:19 AM 5 yr Colon recall placed for 11/07/2029. documented in this encounter Plan of Treatment Not on file documented as of this encounter Procedures Procedure Name Priority Date/Time Associated Diagnosis Comments PATHOLOGY REPORT 11/06/2024 12:0 0 AM EST documented in this encounter Results * Pathology (11/06/2024 12:00 AM EST) John Cox MD PATHOLOGY/CYTOLOGY O [facility] documented in this encounter Visit Diagnoses Not on filedocumented in this encounter Care Teams Pig Conveyor Operator Relationship Specialty Start Date End Date Clarke Vidal MD [address] [place] [address] PCP - General Internal Medicine 07/16/24 documented as of this encounter
--- OUTSIDE RECORDS SUMMARY | 2024-11-29 08:37 | XMS_ITS | Encounter Summary ---
Author Organization [facility] Address [address] [place] [address] Care Team Providers Care Leadership Development Instructor Name Role Phone Clarke Vidal MD Primary Care Provider [phone] Reason for Visit * Auth/Cert (Routine) Specialty Diagnoses / Procedures Referred By Contac t Referred To Contact Diagnoses Adenomatous polyp of colon, unspecified part of colon Procedures COLONOSCOPY Referral ID Status Reason Start Date Expiration Date Visits Re quested Visits Authorized [id number] 1 1 Encounter Details Date Type Department Care Team (Latest Contact Info) Description 11/06/2024 7:53 AM EST - 11/06/2024 11:59 PM EST Hospital Encounter [facility] ENDO PROC [facility] [address] [place] [id number] John Cox MD [address] [place] [address] Discharge Disposition: Home or Self Care Social History Tobacco Use Types Packs/Day Years [...] on filedocumented in this encounter Care Teams Leadership Development Instructor Relationship Specialty Start Date End Date Clarke Vidal MD [address] [place] [address] PCP - General Internal Medicine 07/16/24 documented as of this encounter
--- OUTSIDE RECORDS SUMMARY | 2024-11-29 08:37 | XMS_ITS ---
Author Name [facility] Organization Unknown History of Medication Use Medication Directions Dispensed Refills Start Date End Date Stat us zolpidem (AMBIEN) 5 MG tablet Take 5 mg by mouth nightly as needed for sleep. active clobetasol (TEMOVATE) 0.05 % cream Apply topically 2 (two) times a day. 08/06/2024 active tadalafil (CIALIS) 20 MG tablet Take 20 mg by mouth as needed. 08/06/2024 active Problems Problem Status Onset Date Problem Type Date of Resoluti on Source Adenomatous polyp of colon active 2024-08-15 [facility]
== END 2024-11-29 08:28 | disposition home or self-care (01) ==
LOC: HO.CT 08:27
PROVIDERS: PCP Internal Medicine; Visit Provider Internal Medicine
DX: I71.21 Aneurysm of the ascending aorta, without rupture (principal)
CPT/HCPCS: 71250

== ENCOUNTER → 2024-11-29 08:29 | Outpatient (BNV) | payer MEDICARE, SELFPAY | PROVIDERS: PCP Internal Medicine; Visit Provider Radiology Vascular & Interventional Radiology | DX: I71.21 Aneurysm of the ascending aorta, without rupture (principal) | CPT/HCPCS: 71250 ==

== ENCOUNTER 2025-07-08 08:09 | Outpatient (REF) | payer MEDICARE, SELFPAY ==
--- NOTE | ~2025-07-08 | CT_ITS ---
CLINICAL HISTORY: aneurysm of ascending aorta wo rupture CT angiography thoracic aorta with contrast. MIP postprocessing. Comparison: CT/SR - CT CHEST WO IV CON - 11/29/24 08:35 EST Findings: Ectasia of the ascending thoracic aorta is again identified. The maximal measurement of the ascending thoracic aorta is 4.3 cm. I believe the measurement of 4.6 cm on prior report was and overestimate of the true transverse measurement of the ascending thoracic aorta. No dissection seen. Origin of the great vessels is unremarkable. Descending thoracic aorta is of normal caliber. Central pulmonary arteries are of normal caliber. Overall heart size is within normal limits. Dense coronary artery calcification, especially involving the left anterior descending artery. No pathologically enlarged lymph nodes are seen. Moderate elevation of the left hemidiaphragm with areas of likely chronic atelectasis within left lower lobe. Lungs are otherwise clear. No pleural effusion or pneumothorax. Visualized portion of the abdominal aorta is of normal caliber. Numerous unchanged cysts within the liver. No free fluid or free air upper abdomen. No acute bony fracture. IMPRESSION: 1. Ectasia without aneurysmal dilatation of the ascending thoracic aorta as fully discussed above. 2. Moderate elevation of the left hemidiaphragm. 3. No acute infiltrate. This document has been electronically signed by: Ming Motta MD on 07/09/2025 07:39:58
[2025-07-08] MEDS: iohexoL 350 MG/ML 100 ML INFUS..BTL 85 ML IV (09:04)
[2025-07-09 13:08] LABS: Creatinine POC 0.9 mg/dL (0.5-1.4); GFR POC > 60
== END 2025-07-08 08:10 | disposition home or self-care (01) ==
LOC: HO.CT 08:09
PROVIDERS: PCP Internal Medicine; Visit Provider Internal Medicine
DX: I71.21 Aneurysm of the ascending aorta, without rupture (principal)
CPT/HCPCS: 71275; 82565; Q9967

== ENCOUNTER → 2025-07-08 08:10 | Outpatient (BNV) | payer MEDICARE, SELFPAY | PROVIDERS: PCP Internal Medicine; Visit Provider Radiology Diagnostic Radiology | DX: I71.21 Aneurysm of the ascending aorta, without rupture (principal) | CPT/HCPCS: 71275 ==